=== PATIENT | male | born 1960 | race Caucasian/White ===

== ENCOUNTER → 2017-11-09 | Outpatient (CLI) | payer OTHER ==
[2017-11-09 13:04] LABS: BASO % 1.5 %; EOS % 6.1 %; HEMATOCRIT 42.3 % (42-52); HEMOGLOBIN 14.3 g/dL (14.0-18.0); IG# 0.01 K/uL (0.00-0.02); LYMPH % 21.5 %; LYMPH ABS # 1.42 K/uL (1.2-3.4); MEAN CELL VOLUME 89.2 fL (80-100); MEAN CORPUSCULAR HEMOGLOBIN 30.2 pg (25-34); MEAN CORPUSCULAR HGB CONC 33.8 g/dl (32-36); MEAN PLATELET VOLUME 11.4 fL (7.4-10.4); MONO ABS # 0.46 K/uL (0.11-0.59); NEUT % 63.7 %; NEUT ABS # 4.22 K/uL (1.4-6.5); PLATELET COUNT 196 K/uL (130-400); RED CELL DISTRIBUTION WIDTH CV 13.2 % (11.5-14.5); RED CELL DISTRIBUTION WIDTH SD 43.5 fL (36.4-46.3); WHITE BLOOD COUNT 6.61 K/uL (4.8-10.8)
[2017-11-09 13:48] LABS: BLOOD UREA NITROGEN 10 mg/dl (7-18); CALCIUM 8.9 mg/dl (8.5-10.1); CARBON DIOXIDE 32 mmol/L (21-32); CREATININE 0.99 mg/dl (0.60-1.40); GLUCOSE 91 mg/dl (70-99); POTASSIUM 4.3 mmol/L (3.5-5.1); SODIUM 137 mmol/L (136-145)
== END | disposition home or self-care (01) ==
LOC: C.LABMFLN 10:17
PROVIDERS: ATTEND Family Medicine
DX: R53.83 Other fatigue (principal)